=== PATIENT | female | born 1965 | race Caucasian/White ===

== ENCOUNTER → 2017-08-31 | Outpatient (CLI) | payer OTHER ==
[~2017-08-31] VITALS: Ht 152.4 cm; Wt 99.7 kg
[~2017-08-31] MED LIST: ADIPEX-P37.5 MG PO; AMBIEN5 M1 PO; AMBIEN5 MG PO; AMITRIPTYLINE H75 MG PO; CENTRUM SILVER1 EAC3 PO; CIPRO500 MG PO; ELAVIL75 MG PO; ELMIRON100 MG PO; ENDOCET 5-3251 EACH PO; FLOMAX0.4 MG PO; HYDROCODON-ACE1 EAC7 PO; PERCOCET 5/31 TABLET PO; PHENTERMINE H37.5 MG PO; POTASSIUM CITRA5 MEQ; SAVELLA12.5 MG PO; TOPAMAX25 MG PO; TORADOL10 MG PO; VICODIN 5-3001 EACH PO; ZOFRAN4 MG PO
== END | disposition home or self-care (01) ==
LOC: AMB 10:02
DX: N20.0 Calculus of kidney (principal); Q60.0 Renal agenesis, unilateral; Z96.0 Presence of urogenital implants; Z82.49 Family history of ischemic heart disease and other diseases of the circulatory system
CPT/HCPCS: 74019; J1885; J2250